=== PATIENT | male | born 1995 | race Caucasian/White ===

== ENCOUNTER 2018-03-21 03:19 | Emergency (ER) | payer MEDICAID ==
[~2018-03-21] VITALS: Ht 180.3 cm; Wt 104.3 kg
[2018-03-21 03:25] VITALS: BP 144/71
[2018-03-21] MEDS ORDERED: IBUPROFEN 400 MG TABLET ONE (03:50)
[2018-03-21] MEDS ORDERED: NEOM/POLY B SULF/HC OTIC SUSP 10 ML BOTTLE ONE (03:55)
[2018-03-21] MEDS ORDERED: IBUPROFEN 400 MG TABLET PO ONE (04:00)
[2018-03-21] MEDS ORDERED: NEO/POLY B SULF/HC OTIC SOLN 10 ML BOTTLE LEFT EAR SCH (04:00)
--- NOTE | 2018-03-21 04:02 | NUR ---
MEDICATED PT ORDERED PER DR. MENDOZA, KAYLYNITSPOREVANGELIST OTIC GERRY. 4 DROPS IN LEFT EAR. NOT POPULATED IN EMAR, UNABLE TO SIGN ADMIN MEDICATION, VERIFIED BY 2ND RN HUE.
== END 2018-03-21 04:16 | disposition home or self-care (01) ==
LOC: ER 03:19
DX: H60.92 Unspecified otitis externa, left ear (principal)
CPT/HCPCS: 99283; A4606; Z7610

== ENCOUNTER 2018-07-02 20:48 | Emergency (ER) | payer MEDICAID ==
[~2018-07-02] VITALS: Ht 175.3 cm; Wt 127.0 kg
--- NOTE | 2018-07-02 21:10 | NUR ---
TO ER BED 10 C/O HEADACHE, DIZZINESS, RINGING IN EARS X 3 DAYS. AA/OX4. NO S/S SOB. DENIES N/V. SKIN PINK, WARM, DRY. AMBULATED TO HOSPITAL BED WITH STABLE GAIT. MOVES ALL EXTREMITIES WELL. EQUAL FACIAL SYMMETRY. NAD. VSS. STABLE CONDITION. WILL CONTINUE TO MONITOR.
[2018-07-02] MEDS ORDERED: IV NS 0.9% 1,000 ML BAG IV ONE (22:00)
[2018-07-02 22:11] LABS: BASOPHILS # (AUTO) 0.1 /CMM (0.0-0.2); BASOPHILS % (AUTO) 0.4 % (0.0-2.0); EOSINOPHILS % (AUTO) 1.1 % (0.0-6.0); HEMATOCRIT 45 % (39-51); HEMOGLOBIN 14.4 g/dL (13.5-17.5); LYMPHOCYTES # (AUTO) 2.4 /CMM (0.8-4.8); LYMPHOCYTES % (AUTO) 17.5 % (20.0-44.0); MEAN CORPUSCULAR HGB CONC 33 g/dl (31.0-36.0); MEAN CORPUSCULAR VOLUME 88 fL (80-96); MONOCYTES # (AUTO) 0.5 /CMM (0.1-1.30); MONOCYTES % (AUTO) 3.4 % (2.0-12.0); NEUTROPHILS # (AUTO) 10.6 /CMM (1.8-8.9); NEUTROPHILS % (AUTO) 77.6 % (43.0-81.0); PLATELET COUNT (AUTO) 265 /CMM (150-450); RDW COEFFICIENT OF VARIATION 13.7 (11.5-15.0); RED BLOOD CELL COUNT(AUTO) 5.03 MIL/uL (4.5-6.0); WHITE BLOOD COUNT (AUTO) 13.7 K/uL (4.3-11.0)
--- NOTE | 2018-07-02 22:18 | NUR ---
SITTING UPRIGHT IN BED WITH FAMILY AT BEDSIDE. VSJessica. BETO.
[2018-07-02 22:21] LABS: CREATININE 1.1 mg/dL (0.6-1.3); POTASSIUM 3.7 mmol/L (3.5-5.1)
--- NOTE | 2018-07-03 00:27 | NUR ---
Patient discharged to home in stable condition. Written and verbal after care instructions given. Patient verbalizes understanding of instruction. IV removed. Catheter intact and site benign. Pressure and 4x4 applied to site. No bleeding noted. AMBULATED WITH STEADY GAIT.
[2018-07-03 00:28] VITALS: BP 127/70
== END 2018-07-03 00:29 | disposition home or self-care (01) ==
LOC: ER 20:48
DX: R42 Dizziness and giddiness (principal); F41.9 Anxiety disorder, unspecified; F17.200 Nicotine dependence, unspecified, uncomplicated
CPT/HCPCS: 36415; 80048; 85025; 93005; 96360; 99285; A4606; J7030; Z7610 ×2

== ENCOUNTER 2019-10-10 11:15 | Emergency (ER) | payer MEDICAID ==
[~2019-10-10] VITALS: Ht 175.3 cm; Wt 127.0 kg
[2019-10-10 11:23] VITALS: BP 134/81
[2019-10-10] MEDS ORDERED: PENICILLIN G BENZATHINE 2.4 MMU/4 ML ML IM ONE ×2 (11:52→12:00)
[2019-10-10] MEDS ORDERED: IBUPROFEN 600 MG TABLET PO ONE ×2 (11:52→12:00)
== END 2019-10-10 12:01 | disposition home or self-care (01) ==
LOC: ER 11:19
DX: J02.0 Streptococcal pharyngitis (principal); B95.4 Other streptococcus as the cause of diseases classified elsewhere; F17.200 Nicotine dependence, unspecified, uncomplicated; R00.0 Tachycardia, unspecified
CPT/HCPCS: 96372; 99283; J0558

== ENCOUNTER 2020-04-25 01:44 | Emergency (ER) | payer MEDICAID ==
[~2020-04-25] VITALS: Ht 177.8 cm; Wt 136.1 kg
[2020-04-25 01:44] VITALS: BP 167/108
[2020-04-25] MEDS ORDERED: TDAP [DIPH/PERTUSSIS/TET] 0.5 ML VIAL IM ONE ×2 (01:54→02:00)
== END 2020-04-25 02:02 | disposition home or self-care (01) ==
LOC: ER 01:45
DX: F41.9 Anxiety disorder, unspecified (principal); R19.7 Diarrhea, unspecified; Z20.2 Contact with and (suspected) exposure to infections with a predominantly sexual mode of transmission; F17.200 Nicotine dependence, unspecified, uncomplicated
CPT/HCPCS: 90715

== ENCOUNTER 2024-01-06 17:18 | Emergency (ER) | payer MEDICAID, OTHER | END 2024-01-06 19:08 | disposition left against medical advice (07) | LOC: ER 17:22 | DX: R10.9 Unspecified abdominal pain (principal); Z53.21 Procedure and treatment not carried out due to patient leaving prior to being seen by health care provider ==

== ENCOUNTER 2025-02-19 17:01 | Emergency (ER) | payer OTHER ==
[~2025-02-19] VITALS: Ht 177.8 cm; Wt 86.2 kg
[2025-02-19] MEDS ORDERED: HYDROCODONE/APAP 5/325MG TABLET ONE (18:37)
[2025-02-19] MEDS: HYDROCODONE/APAP 5/325MG TABLET PO ONE (18:58)
[2025-02-19] MEDS ORDERED: NAPR-1009 PO (19:40)
[2025-02-19 19:59] VITALS: BP 124/88; TEMP 97.5; O2SAT 99
== END 2025-02-19 19:59 | disposition home or self-care (01) ==
LOC: ER 17:18
DX: M25.522 Pain in left elbow (principal); M25.569 Pain in unspecified knee; F17.200 Nicotine dependence, unspecified, uncomplicated
CPT/HCPCS: 73030-TC; 73060-TC; 73080-TC; 73502; 73564-TC